=== PATIENT | female | born 1955 | race Caucasian/White ===

== ENCOUNTER 2017-02-18 21:03 | Emergency (ER) | payer SELFPAY ==
[~2017-02-18] VITALS: Ht 165.1 cm; Wt 77.1 kg
[2017-02-18] MEDS ORDERED: MULTIVITAMINS1 EAC7 PO (22:10)
[2017-02-18] MEDS ORDERED: ASPIRIN325 MG PO (22:10)
[2017-02-18] MEDS ORDERED: ZOLOFT100 MG PO (22:10)
[2017-02-18] MEDS ORDERED: ISOSORBIDE MONO60 MG PO (22:10)
[2017-02-18] MEDS ORDERED: ALTOPREV20 MG PO (22:11)
[2017-02-18] MEDS ORDERED: PYRIDIUM200 MG PO (23:18)
[2017-02-18] MEDS ORDERED: KEFLEX500 MG PO (23:18)
== END 2017-02-18 23:28 | disposition home or self-care (01) ==
LOC: ED 21:03
DX: N39.0 Urinary tract infection, site not specified (principal); I25.2 Old myocardial infarction; E78.00 Pure hypercholesterolemia, unspecified; I10 Essential (primary) hypertension; F32.9 Major depressive disorder, single episode, unspecified; Z88.5 Allergy status to narcotic agent; Z79.899 Other long term (current) drug therapy; Z95.5 Presence of coronary angioplasty implant and graft; Z90.710 Acquired absence of both cervix and uterus; Z90.49 Acquired absence of other specified parts of digestive tract
CPT/HCPCS: 81001; 87088; 99283

== ENCOUNTER 2024-07-17 17:36 | Emergency (ER) | payer MEDICARE ==
[~2024-07-17] VITALS: Ht 165.1 cm; Wt 61.7 kg
[~2024-07-17 17:36] MED LIST: ALTOPREV20 MG PO; ASPIRIN325 MG PO; ISOSORBIDE MONO60 MG PO; KEFLEX500 MG PO; MULTIVITAMINS1 EAC7 PO; PYRIDIUM200 MG PO; ZOLOFT100 MG PO
--- OUTSIDE RECORDS SUMMARY | 2024-07-17 17:43 | XMS ---
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 Lance has no Care Guidelines for this patient. [place] VISIT COUNT (12 MO.) 1 [facility] Pierce TOTAL 1 NOTE: Visits indicate total known visits. ED/UCC VISIT TRACKING (12 MO.) 07/17/2024 17:37 [facility] [place] TYPE: Emergency COMPLAINT: - COLD SYMPTOMS INPATIENT VISIT TRACKING (12 MO.) No inpatient visits to display in this time frame [email or web address]
[2024-07-17 19:20] LABS: CORONAVIRUS COVID-19 AG NEGATIVE (NEGATIVE); INFLUENZA A AG NEGATIVE (NEGATIVE); INFLUENZA B AG NEGATIVE (NEGATIVE)
[2024-07-17] MEDS ORDERED: INHALER, ASSIST DEVICES 1 EACH SPACER MISC ONE (20:00)
[2024-07-17] MEDS ORDERED: ALBUTEROL SULFATE 8 GM HOME.PACK INH ONE (20:00)
[2024-07-17] MEDS ORDERED: methylPREDNISolone 4 MG HOME.PACK PO ONE (20:00)
[2024-07-17 20:16] VITALS: BP 121/76
== END 2024-07-17 20:10 | disposition home or self-care (01) ==
LOC: ED 17:36
PROVIDERS: Family Medicine
DX: B34.9 Viral infection, unspecified (principal); I10 Essential (primary) hypertension; I25.2 Old myocardial infarction; E78.00 Pure hypercholesterolemia, unspecified; Z87.891 Personal history of nicotine dependence; Z88.5 Allergy status to narcotic agent; Z79.899 Other long term (current) drug therapy; Z79.82 Long term (current) use of aspirin
CPT/HCPCS: 36415; 94640; 99283

== ENCOUNTER 2024-07-20 18:26 | Inpatient (IN) | payer MEDICARE ==
[~2024-07-20] VITALS: Ht 165.1 cm; Wt 62.0 kg
--- OUTSIDE RECORDS SUMMARY | 2024-07-20 18:33 | XMS ---
PreManage Notification: MELANIE MALLOY Security Contact Center Representative Events No recent Security Events currently on file CRITERIA MET - Group Notification - [facility] [place] - 2 Visits in 30 Days CARE PROVIDERS There are no care providers on record at this time. Lance has no Care Guidelines for this patient. [place] [facility]12 MO.) [facility] NOTE: Visits indicate total known visits. ED/C VISIT TRACKING (12 MO.) [facility]24 18[facility] COMPLAINT: - OXYGEN LOW 07/17/2024 17:[address] 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
[2024-07-20] MEDS ORDERED: ALBUTEROL/IPRATROPIUM 3 ML NEB INH PRN (18:45)
[2024-07-20 19:01] LABS: RBC 3.93 M/ul (4.3-5.7); RDW 13.8 (10.5-15.0)
[2024-07-20 19:04] LABS: HEMATOCRIT 36.2 % (35.0-50.0); HEMOGLOBIN 12.1 g/dL (12.0-18.0); MCH 30.7 (27-36); MCHC 33.4 g/dl (30-36); PLATELET COUNT 352 K/uL (140-440)
[2024-07-20 19:19] LABS: ALBUMIN 2.8 g/dL (3.4-5.0); ALBUMIN/GLOBULIN RATIO 0.64 (1.1-2.4); ANION GAP 14.2 (7-21); BUN/CREATININE RATIO 21.5 (6.0-28.6); CALCIUM 9.1 mg/dL (8.5-10.1); CREATININE, SERUM 0.93 mg/dL (0.55-1.02); LYMPHOCYTES, MANUAL DIFF 7; MAGNESIUM 1.5 mg/dL (1.8-2.4); MONOCYTES, MANUAL DIFF 11; NEUTROPHILS, MANUAL DIFF 82; POTASSIUM 3.2 mmol/L (3.5-5.1); PROTEIN, TOTAL 7.2 g/dL (6.4-8.2)
[2024-07-20] MEDS ORDERED: AZITHROMYCIN 500 MG in DEXTROSE 5% 250 ML IV ONE (19:45)
[2024-07-20] MEDS ORDERED: CEFTRIAXONE SODIUM 2 GM VIAL ONE (19:45)
[2024-07-20] MEDS ORDERED: CEFTRIAXONE SODIUM 2 GM in SODIUM CHLORIDE 0.9% 100 ML IV ONE (19:45)
[2024-07-20] MEDS ORDERED: methylPREDNISolone SOD SUCC 125 MG/2 ML VIAL IV ONE (19:45)
[2024-07-20] MEDS ORDERED: ALBUTEROL SULFATE 0.083% 3 ML VIAL INH ONE (20:00)
[2024-07-20 20:47] LABS: INFLUENZA B NAA NEGATIVE (NEGATIVE); RESPIRATORY SYNCYTIAL VIR NAA NEGATIVE (NEGATIVE)
[2024-07-20] MEDS ORDERED: MELATONIN 3 MG TAB PO PRN (21:00)
[2024-07-20] MEDS ORDERED: ondansetron HCL 4 MG/2 ML VIAL IV PRN (21:15)
[2024-07-20] MEDS ORDERED: ACETAMINOPHEN 325 MG TAB PO PRN (21:15)
[2024-07-20] MEDS ORDERED: MAGNESIUM SULFATE 2 GM/50 ML BAG IV SCH (21:30)
[2024-07-20] MEDS ORDERED: POTASSIUM CHLORIDE 10 MEQ TABCR PO ONE (21:30)
[2024-07-20] MEDS ORDERED: NICOTINE 21 MG/24 HR 1 EA TDSY TD PRN (21:30)
[2024-07-20 21:38] VITALS: BP 114/64
--- NOTE | 2024-07-20 21:58 | NUR ---
RT PLACED MELANIE ON A CONTINUOUS PULSE OX BECAUSE SHE IS CURRENTLY ON A 2L NC AND DOES NOT NORMALLY WEAR HOME OXYGEN, NOR DOES SHE USE HOME RESPIRATORY MEDS OR A CPAP/BIPAP. MELANIE DOES HAVE AN EXTENSIVE SMOKING HISTORY (40+ YEARS) WITH A COPD DIAGNOSIS. RT STARTED MELANIE ON A PEP CORNET LEVEL 5 AND SHE WAS ABLE TO DEMONSTRATE UNDERSTANDING AND TO PROFICIENTLY USE THE CORNET WITHOUT DIFFICULTY. SHE WAS INSTRUCTED TO DO THE PEP CORNET 10 TIMES AN HOUR OR M ORE WHILE AWAKE. ADDITIONALLY, RT PLACED MELANIE ON BID DUONEB AND PULMICORT WITH PRN TREATMENTS TO HELP HER RESPIRATORIALLY WHILE SHE IS IN THE HOSPITAL.
[2024-07-20] MEDS ORDERED: ALBUTEROL SULFATE 0.083% 3 ML VIAL INH PRN (22:00)
--- NOTE | 2024-07-20 22:47 | NUR ---
PT TO FLOOR APPROX 2130 WITH ED RN VIA STRETCHER. ALERT AND ORIENTED. PT ABLE TO TRANSFER SELF TO BR AND THEN TO BED WITH MINIMAL ASSIST. GAIT STEADY. BACK TO BED. REPORT RECEIVED. VS OBTAINED. PT ON 2L/NC. SpO2 MID 90'S. HR 80'S. LUNGS CLEAR THROUGHOUT. CONGESTED COUGH NOTED. NO C/O SOB. CPOX IN PLACE. ADMISSION ASSESSMENT COMPLETE. SCHEDULED MEDS ADMIN PER EMAR. PT ORIENTED TO ROOM AND NURSE CALL LIGHT. SON AT BEDSIDE. NO FURTHER NEEDS. CALL LIGHT IN REACH.
--- NOTE | 2024-07-20 23:21 | NUR ---
BAG 2 OF 2 IV MAG INFUSING PER ORDER. PT DENIES SOB. PT DEMONSTRATING PROPER USE OF ACAPELLA. PRODUCTIVE COUGH NOTED. PRN FOR SLEEP ADMIN PER REQUEST. NO FURTHER NEEDS. BED ALARM IN PLACE.
[2024-07-21] VITALS (11 sets, daily range): BP systolic 98–124; BP diastolic 51–66
--- NOTE | 2024-07-21 01:03 | NUR ---
IV PUMP ALARMING. MAG COMPLETE. IV SL'D PER ORDER. UP TO BR WITH MINIMAL SBA TO VOID. GAIT STEADY. BACK TO BED, MORIAH WELL. 1L/NC IN PLACE. SpO2 LOW 90'S. PT DENIES SOB. VS AND I&O OBTAINED. NO FURTHER NEEDS. SON TO STAY THE NIGHT. LINENS PROVIDED. BED ALARM FOR SAFETY. CALL LIGHT IN REACH.
--- NOTE | 2024-07-21 02:28 | NUR ---
PT LYING IN BED RESTING WITH EYES CLOSED. RESPIRATIONS EVEN. SpO2 LOW 90'S ON 1L/NC. HR 60'S.
--- NOTE | 2024-07-21 04:11 | NUR ---
PT UP TO BR TO VOID. GAIT STEADY. BACK TO BED, MORIAH WELL. SpO2 UPON RETURNING TO BED 93% ON RA. OXYGEN TITRATED OFF AT THIS TIME. PT REPORTS SLIGHT SOB WITH ACTIVITY. PRODUCTIVE COUGH NOTED. ASSESSMENT COMPLETE. NO FURTHER NEEDS.
[2024-07-21 05:13] LABS: BASOPHILS 0.1 % (0-2); HEMATOCRIT 32.6 % (35.0-50.0); HEMOGLOBIN 11.1 g/dL (12.0-18.0); LYMPHOCYTES 4.9 % (24-44); MCV 91.2 fl (81-99); PLATELET COUNT 348 K/uL (140-440); RBC 3.58 M/ul (4.3-5.7); RDW 13.8 (10.5-15.0)
[2024-07-21 05:36] LABS: ALBUMIN 2.6 g/dL (3.4-5.0); ALBUMIN/GLOBULIN RATIO 0.62 (1.1-2.4); BILIRUBIN, TOTAL 0.4 mg/dL (0.2-1.0); BUN/CREATININE RATIO 16.47 (6.0-28.6); CALCIUM 8.6 mg/dL (8.5-10.1); CREATININE, SERUM 0.85 mg/dL (0.55-1.02); MAGNESIUM 2.7 mg/dL (1.8-2.4); PHOSPHORUS, INORGANIC 2.6 mg/dL (2.5-4.9); PROTEIN, TOTAL 6.8 g/dL (6.4-8.2)
--- NOTE | 2024-07-21 05:52 | NUR ---
PT AWAKE IN BED. VS AND I&O OBTAINED. PT REMAINS ON RA. SpO2 LOW 90'S. PT REPORTS RIB PAIN FROM COUGHING 5/10. PRN FOR PAIN ADMIN PER EMAR. SON REMAINS AT BEDSIDE. NO FURTHER NEEDS.
--- NOTE | 2024-07-21 07:26 | NUR ---
REPORT RECEIVED FROM EPHRAIM BARON. PT AWAKE AND ALERT IN BED, SON AT BEDSIDE. REQUESTING ICE WATER, PROVIDED BY MARLENY WATERS. PT HAS NO OTHER REQUESTS, CALL LIGHT IN REACH.
--- NOTE | 2024-07-21 07:58 | NUR ---
PATIENT IN BED AT THIS TIME. 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 CALL LIGHT WITHIN REACH, NO FURTHER NEEDS AT THIS TIME.
[2024-07-21] MEDS ORDERED: BUDESONIDE 0.5 MG/2 ML VIAL INH SCH (08:00)
[2024-07-21] MEDS ORDERED: ALBUTEROL/IPRATROPIUM 3 ML NEB INH SCH ×2 (08:00)
--- NOTE | 2024-07-21 08:52 | NUR ---
MEDICATION ADMINISTERED, SEE JUL. ASSESSMENT COMPLETE. PT RESTING SITTING UP IN BED EATING BREAKFAST, SON AT BEDSIDE. PT HAS CONTINUED RIB PAIN RATED 5/10 D/T COUGHING. CURRENTLY HAS NO REQUESTS FOR INTERVENTIONS FOR THIS. CPOX AT BEDSIDE. LUNG SOUNDS CLEAR IN TRAM AND LLL, DIM AND TIGHT IN RUL, FINE CRACKLES TO RLL. PT REPORTS SHE ONLY EXPERIENCES MILD SHORTNESS OF BREATH IF SHE IS TOO MOBILE. SHE IS ON ROOM AIR AT THIS TIME. NO OTHER REQUESTS. SON REMAINS IN ROOM, PT CONTINUES EATING BREAKFAST. CALL LIGHT IN REACH.
[2024-07-21] MEDS ORDERED: ENOXAPARIN SODIUM 40 MG/0.4 ML SYR SUB-Q SCH (09:00)
[2024-07-21] MEDS ORDERED: methylPREDNISolone SOD SUCC 125 MG/2 ML VIAL IV SCH (09:00)
--- NOTE | 2024-07-21 09:54 | NUR ---
PATIENT IN BED AT THIS TIME. WAREHOUSE STOCKER CHARTED VITALS AND I&O'S. CALL LIGHT WITHIN REACH, NO FURTHER NEEDS AT THIS TIME.
[2024-07-21] MEDS ORDERED: PHARMACY RENAL DOSE ADJUSTMENT 1 DOSE MISC PO SCH (12:00)
--- NOTE | 2024-07-21 12:20 | NUR ---
PRESENT IN ROOM TO ASSESS PT. MANJIT QUESTIONS AND CONCERNS ANSWERED. PT AMBULATES WITH LTM ONLY TO SIT UP IN RECLINER FOR LUNCH. PT REQUESTING HER PURSE BE LOCKED IN LOCK BOX AT THIS TIME - DONE. NO OTHER REQUESTS, CALL LIGHT IN REACH.
--- NOTE | 2024-07-21 14:07 | NUR ---
MULTIPLE FAMILY RETURN AT THIS TIME.
--- NOTE | 2024-07-21 14:19 | NUR ---
PT REPORTS TO THIS RN THAT SHE HAS MILD DYSURIA, A SMALL AMOUNT OF URINE WHICH IS CLOUDY AND CONCENTRATED. PT IS CONCERNED SHE HAS HAD UROSEPSIS IN THE PAST AND DOES NOT WANT THIS TO REOCCUR. NOTIFIED. PLACES ORDERS FOR UA AND AZO AT THIS TIME. PT HAS NO OTHER REQUESTS, CALL LIGHT IN REACH, CPOX IN PLACE.
[2024-07-21] MEDS ORDERED: PHENAZOPYRIDINE HCL 100 MG TAB PO PRN (14:30)
--- NOTE | 2024-07-21 15:38 | NUR ---
PT RESTING IN BED SITTING UP AND ON HER CELL PHONE. IV TO R FOREARM FLUSHES WNL. PT HAS CONGESTED COUGH AND MANAGES TO CLEAR SPUTUM INTO EMESIS BAG. SMALL AMOUNT OF THICK SPUTUM NOTED TO BE GREYISH/GREEN IN COLOR. PT USES ACAPELLA X10, REPORTS USING THE ACAPELLA AND/OR COUGHING IS CAUSING HER RIB PAIN TO RETURN. RIB PAIN RATED 5/10. PRN PAIN MEDICATION ADMINISTERED, SEE MAR. PT REPORTS SHE FEELS SHE MAY HAVE TO VOID SOON. EDUCATED PT TO WIPE AND CLEAN HERSELF SO WE MIGHT GET A CLEAN CATCH, WIPES PROVIDED. PT VERBALIZES UNDERSTANDING. NO OTHER REQUESTS, CALL LIGHT IN REACH.
[2024-07-21 15:55] LABS: BILIRUBIN, URINE NEGATIVE (negative); BLOOD/HGB, URINE NEGATIVE (Negative); KETONE, URINE NEGATIVE (Negative); LEUK ESTERASE, URINE NEGATIVE (negative); NITRITE, URINE NEGATIVE (negative); PH, URINE 6.5 (5-7)
--- NOTE | 2024-07-21 17:45 | NUR ---
PT SITTING ON EDGE OF BED EATING DINNER WITH HER DAUGHTER. REPORTS THE PRN PAIN MEDICATION WAS HELPFUL FOR HER RIB PAIN RATING HER PAIN A 4/10. NO REQUESTS AT THIS TIME, CALL LIGHT IN REACH, CPOX AT BEDSIDE.
--- NOTE | 2024-07-21 18:18 | NUR ---
VS AND I&O RECORDED. PT REPORTS SHE AMBULATED IN THE HALLWAY WITH HER DAUGHTER AND EXPERIENCED MILD DIZZINESS UPON RETURNING TO HER ROOM BUT NO SOB. PT HAS NO COMPLAINTS OR REQUESTS AT THIS TIME, CALL LIGHT IN REACH, DAUGHTER REMAINS IN ROOM.
--- NOTE | 2024-07-21 19:16 | EKG ---
[facility] [address] [place] [address] Signed Normal sinus rhythm Normal ECG No previous ECGs available Confirmed by Paramjit Barron MD () on 07/21/2024 7:16:01 PM Electronically Signed By: PARAMJIT BARRON MD 07/21/241915 PATIENT NAME: MELANIE MALLOY Electrocardiogram DATE OF : 51 PHYSICIAN: PARAMJIT BARRON MD REPORT #: [id number] REPORT IS CONFIDENTIAL AND NOT TO BE RELEASED WITHOUT AUTHORIZATION
--- NOTE | 2024-07-21 19:25 | NUR ---
REPORT RECEIVED FROM DAY SHIFT RN. PT LYING IN BED ALERT AND ORIENTED. DENIES NEEDS. WHITE BOARD UPDATED. CALL LIGHT IN REACH.
--- NOTE | 2024-07-21 20:53 | NUR ---
MELANIE DOES THE CORNET LEVEL 5 W/O DIFFICULTY.
[2024-07-21] MEDS ORDERED: CEFTRIAXONE SODIUM 2 GM VIAL ONE (20:55)
[2024-07-21] MEDS ORDERED: AZITHROMYCIN 500 MG in DEXTROSE 5% 250 ML IV SCH (21:00)
[2024-07-21] MEDS ORDERED: CEFTRIAXONE SODIUM 2 GM in SODIUM CHLORIDE 0.9% 100 ML IV SCH (21:00)
--- NOTE | 2024-07-21 21:17 | NUR ---
EVENING ASSESSMENT COMPLETE. SCHEDULED MEDS ADMIN PER EMAR. PT DENIES PAIN OR NAUSEA. NO C/O SOB. PT CONTINUES TO USE CORNET. SpO2 LOW 90'S ON RA. RESPIRATIONS EVEN. FINE CRACKLES AUSCULTATED IN RLL. PRODUCTIVE COUGH NOTED. NO NEEDS AT THIS TIME. CALL LIGHT IN REACH.
[2024-07-21] MEDS ORDERED: AZITHROMYCIN 500 MG VIAL ONE (21:50)
--- NOTE | 2024-07-21 22:12 | NUR ---
PT AWAKE VISITING WITH FAMILY. IV ABX INFUSING PER ORDER. IV SITE WNL. NO C/O PAIN WITH INFUSIION. NO FURTHER NEEDS. CALL LIGHT IN REACH.
--- NOTE | 2024-07-21 23:41 | NUR ---
IV PUMP ALARMING. IV ABX COMPLETE. VISITORS REMAIN IN ROOM. PT DENIES NEEDS.
--- NOTE | 2024-07-22 01:05 | NUR ---
VISITORS LEAVING ROOM. PT UP TO BR TO VOID. GAIT STEADY. BACK TO BED, MORIAH WELL. NO FURTHER NEEDS. CALL LIGHT IN REACH.
--- NOTE | 2024-07-22 02:55 | NUR ---
PT RESTING IN BED WITH EYES CLOSED. SpO2 92% ON RA. HR 60'S. CALL LIGHT IN REACH. FAMILY RESTING ON COUCH.
[2024-07-22 05:06] VITALS: BP 127/73
[2024-07-22 05:12] LABS: RDW 13.7 (10.5-15.0)
[2024-07-22 05:14] LABS: BASOPHILS 0.2 % (0-2); HEMATOCRIT 32.4 % (35.0-50.0); HEMOGLOBIN 10.9 g/dL (12.0-18.0); LYMPHOCYTES 5.5 % (24-44); MCHC 33.7 g/dl (30-36); MONOCYTES 4.5 % (0-12); NEUTROPHILS 89.8 % (39-80); PLATELET COUNT 356 K/uL (140-440); RBC 3.52 M/ul (4.3-5.7)
--- NOTE | 2024-07-22 05:22 | NUR ---
LAB IN FOR MORNING DRAW. VS AND I&O OBTAINED. PT REPORTS RIB PAIN R/T COUGHING 11/05. PRN FOR PAIN ADMIN PER EMAR. PT DENIES SOB. NO NEEDS AT THIS TIME. CALL LIGHT IN REACH.
[2024-07-22 05:27] LABS: ALBUMIN 2.5 g/dL (3.4-5.0); ALBUMIN/GLOBULIN RATIO 0.64 (1.1-2.4); ANION GAP 14.1 (7-21); BILIRUBIN, TOTAL 0.2 mg/dL (0.2-1.0); BUN/CREATININE RATIO 21.17 (6.0-28.6); CALCIUM 8.8 mg/dL (8.5-10.1); CREATININE, SERUM 0.85 mg/dL (0.55-1.02); POTASSIUM 4.1 mmol/L (3.5-5.1); PROTEIN, TOTAL 6.4 g/dL (6.4-8.2)
--- NOTE | 2024-07-22 07:34 | NUR ---
PT AWAKE AND INTERACTIVE AT TIME OF SHIFT REPORT, GRANDDAUGHTER PRESENT IN THE ROOM. BLINDS OPENED, FRESH H20 TO BEDSIDE, PT DENIES OTHER NEEDS. BREATHING EVEN AND UNLABORED PT VISITING ACTIVELY CALL LIGHT IN HAND
--- NOTE | 2024-07-22 07:39 | NUR ---
UR CLINICAL REVIEW: 2 MN FOR VERSALUS-PER FURNACE KEEPER MEETS INPT CRITERIA FOR PNEUMONIA/COPD WITH NEED FOR OXYGEN MEDICARE INPT 07/20/24 @ 2108 ORDER MATCHES REG NO AUTH REQUIRED PER MEDICARE GUIDELINES DISCHARGE TO HOME WHEN STABLE.
[2024-07-22] MEDS ORDERED: ALBUTEROL/IPRATROPIUM 3 ML NEB INH SCH (08:00)
[2024-07-22 08:18] VITALS: BP 125/71
--- NOTE | 2024-07-22 10:05 | NUR ---
Today, upon entering the room I find Justa in bed, AAOX3, with adult family member in the room. IMM letter explained, and signed. Four hour waiver explained, which Justa agrees to and she denies the desire to appeal her discharge. A signed copy of the second IMM letter is also provided to Justa. Further questions, concerns, or patient care needs expressed at this time.
[2024-07-22 10:10] VITALS: BP 125/71
--- NOTE | 2024-07-22 10:12 | NUR ---
PT EATS 100% OF MORNING MEAL. RESTING IN BED TALKING WITH VISITORS X2 DENIES NEEDS.
[2024-07-22] MEDS ORDERED: CEFDINIR300 MG PO (11:21)
[2024-07-22] MEDS ORDERED: AZITHROMYCIN250 MG PO (11:22)
[2024-07-22] MEDS ORDERED: FLUCONAZOLE150 MG PO (11:23)
[2024-07-22] MEDS ORDERED: ALBUTEROL2.5 MG/3 M INH (11:24)
[2024-07-22] MEDS ORDERED: PREDNISONE20 MG PO (11:25)
--- NOTE | 2024-07-22 11:29 | NUR ---
PT SITTING UP IN BED DRAWING AND VISITING WITH GUESTS X2 DENIES NEEDS AT THIS TIME
--- NOTE | 2024-07-22 11:45 | NUR ---
DR BARRON IN TO SEE PT DC DISCUSSED ALL QUESTIONS ANSWERED
--- NOTE | 2024-07-22 11:57 | NUR ---
medications reconciled by pharmacy
[2024-07-22 13:22] VITALS: BP 118/70
--- NOTE | 2024-07-22 13:30 | NUR ---
INTO SEE PATIENT. SON AND GRAND DAUGHTER AT BEDSIDE. PERSONAL HEALTH INFORMATION REVIEWED. PATIENT LIVES IN A HOME WITH ONE STEP TO GET IN. PATIENT HAS NO DIFFCULTY GETTING INTO THE HOUSE OR THE BED. PATIENT HAS A 7 YEAR OLD AND 3 YEAR OLD LIVING WITH HER TEMPORARILY AND WILL BE MOVING OUT AND GRAND DAUGHTER IS GOING TO BE MOVING INTO HELP HER. PATIENT HAS WALKER, CANE AND WHEELCHAIR BUT DOES NOT USE THEM. DENIES USING OXYGEN AND CPAP. PATIENT USES [employer] FOR [employer]. STATES SHE DOES NOT HAVE DIFFCULTY PAYING HER BILLS BUT IS STRAPED WITH [employer]ILDER[employer]. 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 DENIES ANY CM NEEDS AT THIS TIME.
== END 2024-07-22 13:30 | disposition home or self-care (01) | DRG 193 ==
LOC: ED 18:26 → MS 21:08
PROVIDERS: Emergency Medicine; ADMIT Family Medicine; ATTEND Family Medicine
DX: J18.9 Pneumonia, unspecified organism (principal); J96.01 Acute respiratory failure with hypoxia; J44.0 Chronic obstructive pulmonary disease with (acute) lower respiratory infection; J44.1 Chronic obstructive pulmonary disease with (acute) exacerbation; E87.6 Hypokalemia; E78.00 Pure hypercholesterolemia, unspecified; E83.42 Hypomagnesemia; F32.A Depression, unspecified; Z88.5 Allergy status to narcotic agent; Z79.82 Long term (current) use of aspirin; Z79.899 Other long term (current) drug therapy; Z87.891 Personal history of nicotine dependence; Z95.1 Presence of aortocoronary bypass graft; Z90.49 Acquired absence of other specified parts of digestive tract; Z90.710 Acquired absence of both cervix and uterus; Z98.890 Other specified postprocedural states
CPT/HCPCS: 36415; 71045; 80053; 81003; 83735; 84100; 84484; 85025; 87502; 93005; 93010; 94640; 94667; 94668; 94762; 96365; 96375; 99285-25; A9270; J0456; J1650; J2919; J3475; J7060; U0002

== ENCOUNTER 2024-08-20 13:17 | Emergency (ER) | payer MEDICARE ==
[~2024-08-20] VITALS: Ht 165.1 cm; Wt 63.5 kg
[~2024-08-20 13:17] MED LIST changes: +ALBUTEROL2.5 MG/3 M INH; +AZITHROMYCIN250 MG PO; +CEFDINIR300 MG PO; +FLUCONAZOLE150 MG PO; +PREDNISONE20 MG PO
--- OUTSIDE RECORDS SUMMARY | 2024-08-20 13:24 | XMS ---
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 Lance has no Care Guidelines for this patient. [place] VISIT COUNT (12 MO.) 3 IZABEL Pierce TOTAL 3 NOTE: Visits indicate total known visits. 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 - Old myocardial infarction - Other alf (current) drug therapy - Personal history of nicotine dependence - Pure hypercholesterolemia, unspecified - Viral infection, unspecified INPATIENT VISIT TRACKING (12 MO.) 07/20/2024 21:08 [facility] Giang [place] TYPE: Medical Surgical COMPLAINT: - PNEUMONIA, COPD EXACERBATION DIAGNOSES: - Acquired absence of both cervix and uterus - Acquired absence of both cervix and uterus - Acquired absence of other specified parts of digestive tract - Acquired absence of other specified parts of digestive tract - Acute respiratory failure with hypoxia - Acute respiratory failure with hypoxia - Allergy status to narcotic agent - Allergy status to narcotic agent - Chronic obstructive pulmonary disease with (acute) exacerbation - Chronic obstructive pulmonary disease with (acute) exacerbation - Chronic obstructive pulmonary disease with (acute) lower respiratory infection - Chronic obstructive pulmonary disease with (acute) lower respiratory infection - Depression, unspecified - Depression, unspecified - Hypokalemia - Hypokalemia - Hypomagnesemia - Hypomagnesemia - longterm (current) use of aspirin - longterm (current) use of aspirin - Other alf (current) drug therapy - Other alf (current) drug therapy - Other specified postprocedural states - Other specified postprocedural states - Personal history of nicotine dependence - Personal history of nicotine dependence - Pneumonia, unspecified organism - Presence of aortocoronary bypass graft - Presence of aortocoronary bypass graft - Pure hypercholesterolemia, unspecified - Pure hypercholesterolemia, unspecified [id number]
[2024-08-20] MEDS ORDERED: VAZALORE81 MG (13:34)
[2024-08-20] MEDS ORDERED: AMOX TR-K CLV1 EAC1 (13:35)
[2024-08-20] MEDS ORDERED: TRAZODONE HCL50 MG (13:35)
[2024-08-20] MEDS ORDERED: ACETAMINOPHEN 500 MG TAB PO ONE (15:00)
[2024-08-20] MEDS ORDERED: IBUPROFEN 400 MG TAB PO ONE (15:00)
[2024-08-20 16:21] VITALS: BP 126/81
== END 2024-08-20 16:27 | disposition home or self-care (01) ==
LOC: ED 13:17
DX: K14.0 Glossitis (principal); I25.2 Old myocardial infarction; Z87.891 Personal history of nicotine dependence; Z88.5 Allergy status to narcotic agent
CPT/HCPCS: 99283; A9270